=== PATIENT | female | born 1970 | race Caucasian/White ===

== ENCOUNTER 2020-06-29 06:56 | Day surgery (SDC) | payer OTHER ==
[2020-06-29] MEDS ORDERED: KEFZOL 1 GM/50 ML PREMIX** 1 GM/50 ML IVPB IV SCH (07:15)
[2020-06-29 07:30] VITALS: O2SAT 97
[2020-06-29] MEDS ORDERED: Lactated Ringers 1,000 ML IV SCH (07:30)
[2020-06-29] MEDS ORDERED: SUBLIMAZE 100 MCG/2 ML ONE (08:48)
[2020-06-29] MEDS ORDERED: DIPRIVAN 200 MG/20 ML IV ONE (08:48)
[2020-06-29] MEDS ORDERED: Versed 2 MG/2 ML Injection ONE (08:49)
[2020-06-29] MEDS ORDERED: Zofran 4 MG/2 ML VIAL ONE (08:55)
[2020-06-29] MEDS ORDERED: Decadron 4 MG INJ ONE (08:55)
[2020-06-29 11:12] VITALS: BP 111/53; PULSE 52
--- NOTE | 2020-06-30 07:47 | OP ---
SURGERY DATE/TIME: 06/29/2020 0848 PREOPERATIVE DIAGNOSIS: Dysfunctional uterine bleeding and fibroids. POSTOPERATIVE DIAGNOSIS: Dysfunctional uterine bleeding and fibroids. PROCEDURE: Hysteroscopy, D&C. SURGEON: Ruben Maradiaga D.O. SURVEY CAD TECHNICIAN: electronic equipment maint tech. ANESTHESIA: General. ESTIMATED BLOOD LOSS: Minimal. COMPLICATIONS: None. INDICATIONS: The risks, benefits, indications and alternatives of the procedure were reviewed with the patient prior to the procedure. The patient understood the risk of infection, bleeding, bowel injury, bladder injury, ureteral injury, uterine perforation, pelvic infection, thromboembolic disorder associated with the surgery and desires to have this surgery as a possible need to alleviate her current medical condition. DESCRIPTION OF PROCEDURE AND FINDINGS: At this point the patient is taken to the operating room, given general sedation, placed in dorsal lithotomy position. Prepped and draped in the usual sterile fashion. A weighted speculum is then placed in the patient's vagina and the anterior lip of the cervix grasped with a single tooth tenaculum. Endocervical dilators were advanced to the endocervical canal as a means to dilate the cervix and the 5 mm hysteroscope was then placed into the endocervical canal where the endometrial cavity appeared to be within normal limits with no gross abnormalities located within the lining of the uterus. From this point the hysteroscope was then removed and the curette was then introduced in through the endocervical canal where curettage was performed in all quadrants of the uterus retrieving a mild to moderate amount of tissue. From this point hemostasis was obtained. At this point all instruments were then removed from the patient's vaginal region. The patient was then taken out of dorsal lithotomy position, was taken out of anesthesia and was then taken to the recovery room in stable condition. All instruments and laps were accounted for x2.
== END 2020-06-29 11:13 | disposition home or self-care (01) ==
LOC: SDC 06:56
PROVIDERS: ATTEND Obstetrics & Gynecology
DX: N93.9 Abnormal uterine and vaginal bleeding, unspecified (principal); D25.9 Leiomyoma of uterus, unspecified
CPT/HCPCS: 84703; J0690; J1100; J2250; J2405; J2704; J3010

== ENCOUNTER 2020-09-07 07:59 | Inpatient (IN) | payer OTHER ==
[~2020-09-07 07:59] MED LIST: Lactated Ringers 1,000 ML IV ONE
[2020-09-07] MEDS ORDERED: KEFZOL 1 GM/50 ML PREMIX** 1 GM/50 ML IVPB IV ONE (08:09)
[2020-09-07] MEDS: Lactated Ringers 1,000 ML IV SCH ×2 (08:12→23:46)
[2020-09-07] MEDS ORDERED: KEFZOL 1 GM/50 ML PREMIX** 1 GM/50 ML IVPB IV SCH (08:15)
[2020-09-07 08:53] LABS: Absolute Neutrophil Ct (ANC) 4.45 (1.4-6.9); BASOPHIL % 0.4 % (0.0-0.4); Basophil (Absolute #) 0.03 (0-0.4); Eosinophil % 3.1 % (0.00-5.0); Eosinophil (Absolute #) 0.24 (0-0.5); Hemoglobin 12.8 gm/dl (12.0-16.0); Lymphocyte (Absolute #) 2.45 (1.0-4.6); Lymphocytes % 31.4 % (24.0-44.0); Mean Cell Volume 95.7 fl (78-100); Mean Corpuscular Hemoglobin 32.2 pg (26-32); Mean Corpuscular Hgb Concent. 33.7 g/dl (32-36); Mean Platelet Volume 10.4 fl (7.5-11.0); Monocyte (Absolute #) 0.64 (0.0-1.3); Monocytes % 8.2 % (0.0-12.0); Neutrophil % 56.9 % (36.0-66.0); Platelet Count 210 K/mm3 (150-450); Red Blood Count 3.97 M/mm3 (4.1-5.4); Red Cell Distribution Width 13.1 % (11.5-14.0); White Blood Count 7.8 K/mm3 (4.0-10.5)
[2020-09-07] MEDS ORDERED: Versed 2 MG/2 ML Injection IV ONE (08:53)
[2020-09-07 08:56] LABS: ALBUMIN 3.8 g/dL (3.5-5.0); ALKALINE PHOSPHATASE 31 U/L (38-126); ANION GAP 7.5 MEQ/L (5-15); BLOOD UREA NITROGEN 18 mg/dL (7-17); CHLORIDE 108 mmol/L (98-107); Calcium 8.9 mg/dL (8.4-10.2); Carbon Dioxide 24 mmol/L (22-30); Creatinine 1 0.58 mg/dL (0.52-1.04); EST GLOMERULAR FILTRATION RATE > 60.0 ML/MIN; Glucose 90 mg/dL (74-106); Potassium 4.5 mmol/L (3.5-5.1); SGOT/AST 30 U/L (14-36); SGPT/ALT 11 U/L (0-35); SODIUM 135 mmol/L (137-145); Total Protein 6.9 g/dL (6.3-8.2)
[2020-09-07] MEDS ORDERED: Versed 2 MG/2 ML Injection ONE (09:17)
[2020-09-07 09:19] LABS: ABO TYPING A
[2020-09-07] MEDS ORDERED: Astramorph-Pf 5 MG/10 ML ONE (09:19)
[2020-09-07 09:20] LABS: Antibody Screen NEGATIVE (NEGATIVE); RH TYPING POSITIVE
[2020-09-07] MEDS ORDERED: DIPRIVAN 200 MG/20 ML IV ONE (09:29)
[2020-09-07] MEDS ORDERED: SUBLIMAZE 100 MCG/2 ML ONE (09:30)
[2020-09-07] MEDS ORDERED: Zemuron 100 MG/10 ML ONE (09:30)
[2020-09-07] MEDS ORDERED: Decadron 4 MG INJ ONE (09:52)
[2020-09-07] MEDS ORDERED: Naropin 0.5% 30 ML VIAL ONE (10:08)
[2020-09-07] MEDS ORDERED: EPINEPHRINE 1MG/ML AMP ONE (10:08)
[2020-09-07] MEDS ORDERED: Zofran 4 MG/2 ML VIAL ONE (10:39)
[2020-09-07] MEDS ORDERED: BRIDION 200MG/2ML IV ONE (10:57)
[2020-09-07] MEDS ORDERED: Compazine 10 MG/2 ML ONE (11:29)
[2020-09-07] MEDS ORDERED: HOLD NARCOTIC ANALGESICS AND SEDATIVES X24 HR MC PRN (13:23)
[2020-09-07] MEDS ORDERED: DEMEROL 50 MG IV PRN (13:30)
[2020-09-07] MEDS ORDERED: Narcan 0.4 MG/ML IV PRN (13:30)
[2020-09-07] MEDS ORDERED: Nubain 10 MG/ML IV PRN (13:30)
[2020-09-07] MEDS ORDERED: PERCOCET TABLET 5/325MG PO PRN (13:30)
[2020-09-07] MEDS ORDERED: Sodium Chloride 0.9% 10 ML FLUSH Syringe IJ PRN (13:30)
[2020-09-07] MEDS ORDERED: CLARITIN 10 MG PO PRN (13:30)
[2020-09-07] MEDS ORDERED: Zofran 4 MG/2 ML VIAL IV PRN (13:30)
[2020-09-07] MEDS ORDERED: MORPHINE SULFATE 2 MG INJ IV PRN (13:30)
[2020-09-07] MEDS: Mylicon 80MG PO SCH ×2 (13:43→22:45)
[2020-09-07] MEDS: Reglan 10 MG/2 ML IV SCH ×2 (13:44→22:45)
[2020-09-07] MEDS: KEFZOL 1 GM/50 ML PREMIX** 1 GM/50 ML IVPB IV SCH ×2 (13:47→22:47)
[2020-09-07] MEDS: Sodium Chloride 0.9% 10 ML FLUSH Syringe IJ SCH ×2 (13:52→22:46)
[2020-09-07 14:16] LABS: Appearance CLEAR (CLEAR); Bilirubin NEGATIVE (NEGATIVE); Blood SMALL Ery/ul (0-5); Glucose NEGATIVE (NEGATIVE); Ketones NEGATIVE (NEGATIVE); Leukocyte Esterase NEGATIVE (NEGATIVE); Mucus SLIGHT /HPF (NEGATIVE); Nitrite NEGATIVE (NEGATIVE); Protein,Urine Dip NEGATIVE (Negative); Specific Gravity 1.005 (1.005-1.025); Urobilinogen NEGATIVE mg/dL (0-1)
[2020-09-07] MEDS: Zofran 4 MG/2 ML VIAL IV PRN (18:02)
[2020-09-07 18:51] LABS: Hematocrit 37.5 % (35-47); Hemoglobin 12.5 gm/dl (12.0-16.0); Mean Cell Volume 97.2 fl (78-100); Mean Corpuscular Hemoglobin 32.4 pg (26-32); Mean Corpuscular Hgb Concent. 33.3 g/dl (32-36); Mean Platelet Volume 10.4 fl (7.5-11.0); Platelet Count 208 K/mm3 (150-450); Red Blood Count 3.86 M/mm3 (4.1-5.4); Red Cell Distribution Width 13.1 % (11.5-14.0)
[2020-09-07 18:57] LABS: White Blood Count 29.6 K/mm3 (4.0-10.5)
[2020-09-07 21:05] LABS: Total Cells Counted 100
[2020-09-07 21:06] LABS: BAND 4 % (0.0-2.0); Lymphocytes 7 % (24-44); Monocyte 3 % (0.0-12.0); Neutrophils 86 % (36.0-66.0); Platelet Estimate NORMAL (NORMAL)
[2020-09-07] MEDS: Colace 100 MG PO SCH (22:47)
[2020-09-07] MEDS ORDERED: ENOXAPARIN SODIUM SQ SCH (23:00)
[2020-09-08] MEDS: Zofran 4 MG/2 ML VIAL IV PRN (00:12)
[2020-09-08] MEDS: Reglan 10 MG/2 ML IV SCH (05:44)
[2020-09-08] MEDS: Mylicon 80MG PO SCH (05:44)
[2020-09-08] MEDS: Sodium Chloride 0.9% 10 ML FLUSH Syringe IJ SCH (05:45)
[2020-09-08 05:58] LABS: Absolute Neutrophil Ct (ANC) 17.02 (1.4-6.9); Basophil (Absolute #) 0.01 (0-0.4); Eosinophil (Absolute #) 0.01 (0-0.5); Hematocrit 32.8 % (35-47); Hemoglobin 10.9 gm/dl (12.0-16.0); Lymphocyte (Absolute #) 2.32 (1.0-4.6); Mean Cell Volume 97.3 fl (78-100); Mean Corpuscular Hemoglobin 32.3 pg (26-32); Mean Corpuscular Hgb Concent. 33.2 g/dl (32-36); Mean Platelet Volume 10.2 fl (7.5-11.0); Monocyte (Absolute #) 1.78 (0.0-1.3); Monocytes % 8.4 % (0.0-12.0); Neutrophil % 80.6 % (36.0-66.0); Platelet Count 187 K/mm3 (150-450); Red Blood Count 3.37 M/mm3 (4.1-5.4); Red Cell Distribution Width 13.2 % (11.5-14.0); White Blood Count 21.1 K/mm3 (4.0-10.5)
[2020-09-08 06:20] LABS: ALBUMIN 2.7 g/dL (3.5-5.0); ALKALINE PHOSPHATASE 28 U/L (38-126); BLOOD UREA NITROGEN 11 mg/dL (7-17); CHLORIDE 106 mmol/L (98-107); Calcium 8.5 mg/dL (8.4-10.2); Carbon Dioxide 28 mmol/L (22-30); Creatinine 1 0.57 mg/dL (0.52-1.04); EST GLOMERULAR FILTRATION RATE > 60.0 ML/MIN; Glucose 99 mg/dL (74-106); Potassium 3.9 mmol/L (3.5-5.1); SGOT/AST 20 U/L (14-36); SGPT/ALT 9 U/L (0-35); SODIUM 134 mmol/L (137-145); Total Protein 5.3 g/dL (6.3-8.2)
[2020-09-08] MEDS: Lactated Ringers 1,000 ML IV SCH (07:34)
[2020-09-08] MEDS ORDERED: Zofran 4 MG/2 ML VIAL IV PRN (08:15)
[2020-09-08] MEDS: Colace 100 MG PO SCH (09:31)
--- NOTE | 2020-09-08 09:32 | OP ---
SURGERY DATE/TIME: 09/07/2020916 PREOPERATIVE DIAGNOSIS: Simple hyperplasia. POSTOPERATIVE DIAGNOSIS: Simple hyperplasia. PROCEDURES: 1) Total abdominal hysterectomy. 2) Bilateral salpingectomy. SURGEON: Ruben Maradiaga D.O. LIEUTENANT FIRE FIGHTER: Marvin Jj surgical elastic knitter. ANESTHESIA: General. ESTIMATED BLOOD LOSS: Minimal. COMPLICATIONS: None. INDICATIONS: The risks, benefits, indications and alternatives of the procedure were reviewed with the patient prior to the procedure. The patient understood the risk of infection, bleeding, bowel injury, bladder injury, ureteral injury, pelvic infection and thromboembolic disorder associated with the surgery however desires to have the surgery as a possible need to alleviate her current medical condition. DESCRIPTION OF PROCEDURE AND FINDINGS: At this point the patient is taken to the operating room, where she was placed in supine position, given general sedation, prepared and draped in the usual sterile fashion. A Pfannenstiel incision was made approximately 2 cm above the symphysis pubis and extended sharply through the rectus fascia. The fascia was then incised bilaterally with curved Mckinney scissors and the muscle of the anterior abdominal wall were in the midline by sharp and blunt dissection. The peritoneum was then grasped between two pickups elevated and entered sharply with Metzenbaum scissors. The pelvis is then examined and noted to have approximately 10 week size uterus. An O'Dandre-O'Granados retractor was placed into the incision and the bowel packed away with moist laparotomy sponges. Two Rose Mary clamps were placed on the cornua and used for retraction. At this point the LigaSure was used over the left utero-ovarian ligament where it was clamped, coagulated and cut taking down through the round ligament towards the uterine vasculature. From this point the anterior lip of the broad ligament was then incised along the bladder reflection towards the midline on each side. From this point uterine arteries were skeletonized on each side, clamped with Vinayak clamp, transected and suture ligated with 0 Vicryl suture. Hemostasis was assured. The same procedure was performed on the right side where the LigaSure was used to clamp, coagulate and cut the utero-ovarian ligament on its side taking down to the round ligament towards the uterine vasculature where again on its side uterine arteries were skeletonized, clamped with Vinayak clamps, transected and suture ligated with 0 Vicryl suture. The LigaSure was used to excise the fallopian tube on the mesosalpinx on both sides and was done so without complications. Hemostasis was obtained. From this point the uterosacral ligaments were clamped on both sides, transected and suture ligated in similar fashion. The cervix and the uterus were then amputated with cautery. The vaginal cuff angles were closed with a figure-of-8 stitch of 0 Vicryl on both sides and transected the ipsilateral Cardinal and uterosacral ligaments. The remainder of the vaginal cuff was closed with interrupted 0 Vicryl figure-of-8 sutures. Hemostasis was assured. The pelvis was then irrigated copiously at this time. All lap, sponge and instruments were then removed from the patient's abdomen. Hemostasis assured. Muscles were closed with 2-0 chromic suture, fascia closed with 0 Vicryl suture and the subcutaneous layer was closed with 3-0 plain suture and the skin was closed with absorbable yanira called INSORB. Sponge, lap and instruments counts were correct x2. The patient was then taken to the recovery room in stable condition.
[2020-09-08] MEDS ORDERED: NON-FORMULARY ITEM (Meloxicam [Mobic] 15 MG) PO SCH (10:00)
[2020-09-08] MEDS ORDERED: MELOXICAM PO SCH (10:00)
[2020-09-08 10:29] LABS: Slide Review 1 YES
[2020-09-08] MEDS ORDERED: TORAdol 30 mg Injection IV PRN (13:29)
[2020-09-08 15:56] VITALS: BP 147/81; PULSE 66; O2SAT 98
--- NOTE | 2020-09-08 16:16 | PCM.DS ---
Discharge Summary Date of Admission: 09/07/20 07:59 Admitting Physician: SINA WEI DO Primary Care Provider: PHILIPPE EDGE Allergies Allergies No Known Drug Allergies Allergy (Verified 09/07/20 08:16) Hospital Summary - Hospital Course Hospital Course: pt admitted on sep 07 for undergoing total abdominal hysterectomy for simple hyperplasia and underwent procedure without complication. during postop peirod did well and now stable for discharge. pt given norco for pain management and was given rx for clindamycin 300mg bid 5 days prophylaxis. pt advised to fu in office in 2 wks for postop evaluation. all questions answered to her satisfaction. - Vitals & Intake/Output Vital Signs: Vital Signs Temperature 98.5 F 09/08/20 15:55 Pulse Rate 66 09/08/20 15:55 Respiratory Rate 18 09/08/20 15:55 Blood Pressure 147/81 09/08/20 15:55 O2 Sat by Pulse Oximetry 98 09/08/20 15:55 Intake & Output: Intake & Output 09/06/20 09/07/20 09/08/20 09/09/20 11:59 11:59 11:59 11:59 Intake Total 0 Output Total 1600 Balance -1600 Weight 56 kg 56 kg - Lab Result Diagrams: 09/08/20 04:40 09/08/20 04:40 Lab Results-Last 24 Hrs: Lab Results-Last 24 Hours 09/07/20 09/08/20 09/08/20 Range/Units 18:00 04:40 04:40 WBC 29.6 H* 21.1 H (4.0-10.5) K/mm3 RBC 3.86 L 3.37 L (4.1-5.4) M/mm3 Hgb 12.5 10.9 L (12.0-16.0) gm/dl Hct 37.5 32.8 L (35-47) % MCV 97.2 97.3 (78-100) fl MCH 32.4 H 32.3 H (26-32) pg MCHC 33.3 33.2 (32-36) g/dl RDW 13.1 13.2 (11.5-14.0) % Plt Count 208 187 (150-450) K/mm3 MPV 10.4 10.2 (7.5-11.0) fl Gran % 80.6 H (36.0-66.0) % Eos # (Auto) 0.01 (0-0.5) Absolute Lymphs (auto) 2.32 (1.0-4.6) Absolute Monos (auto) 1.78 H (0.0-1.3) Lymphocytes % 11.0 L (24.0-44.0) % Monocytes % 8.4 (0.0-12.0) % Eosinophils % 0.0 (0.00-5.0) % Basophils % 0.0 (0.0-0.4) % Absolute Granulocytes 17.02 H (1.4-6.9) Segmented Neutrophils 86 H (36.0-66.0) % Band Neutrophils 4 H (0.0-2.0) % Lymphocytes (Manual) 7 L (24-44) % Monocytes (Manual) 3 (0.0-12.0) % Basophils # 0.01 (0-0.4) Platelet Estimate NORMAL (NORMAL) RBC Morphology NORMAL Smear Path Review Pending Sodium 134 L (137-145) mmol/L Potassium 3.9 (3.5-5.1) mmol/L Chloride 106 (98-107) mmol/L Carbon Dioxide 28 (22-30) mmol/L Anion Gap 4.0 L (5-15) MEQ/L BUN 11 (7-17) mg/dL Creatinine 0.57 (0.52-1.04) mg/dL Estimated GFR > 60.0 ML/MIN Glucose 99 (74-106) mg/dL Calcium 8.5 (8.4-10.2) mg/dL Total Bilirubin 0.50 (0.2-1.3) mg/dL AST 20 (14-36) U/L ALT 9 (0-35) U/L Alkaline Phosphatase 28 L (38-126) U/L Serum Total Protein 5.3 L (6.3-8.2) g/dL Albumin 2.7 L (3.5-5.0) g/dL Slides for Path Review YES Micro Results-Entire Visit: Microbiology 09/07/20 09:38 Urine Culture - Preliminary Catherized NO GROWTH TO DATE - Procedures and Test Procedures and Tests throughout Hospitalization: Therapy Orders & Screens 09/07/20 12:34 Incentive Spirometry UD Comment: Diagnosis: LAP TOTAL HYSTERECTOMY HIRO SALPINGECTOMY Discharge Exam Gastrointestinal/Abdomen Exam: soft Final Diagnosis/Problem List - Final Discharge Diagnosis/Problem (1) Status post hysterectomy Current Visit: Yes Status: Acute Code(s): Z90.710 - ACQUIRED ABSENCE OF BOTH CERVIX AND UTERUS - Discharge Discharge Date: 09/08/20 Disposition: Home, Self-Care Condition: Stable Prescriptions: New Clindamycin HCl 300 mg PO BID #10 capsule Hydrocodone/APAP 5-325 Tab^^^ [Mobile 5-325 Tablet^^^] 1 tab PO Q6HPRN PRN #26 tablet MDD 6 PRN Reason: Pain Continue Meloxicam [Mobic] 15 mg PO DAILY Instructions: Hysterectomy (DC) Follow up with: SINA WEI DO [ACTIVE STAFF] - (should fu in 2 wks for postop check)
[2020-09-09 09:57] LABS: Pathologist Review YES
== END 2020-09-08 16:41 | disposition home or self-care (01) | DRG 743 ==
LOC: MED SURG 07:59 → EDSTATUS 19:25
PROVIDERS: ADMIT Obstetrics & Gynecology; ATTEND Obstetrics & Gynecology
PROC: 0UT90ZZ Resection of Uterus, Open Approach (ICD-10-PCS; principal; 2020-09-07)
PROC: 0UT70ZZ Resection of Bilateral Fallopian Tubes, Open Approach (ICD-10-PCS; 2020-09-07)
DX: N85.01 Benign endometrial hyperplasia (principal)
CPT/HCPCS: 36415; 62322; 64488; 76937; 76942; 80053; 81001; 84703; 85007; 85025; 85027; 86850; 86900; 86901; 87086; 88309; J0171; J0690; J1100; J1650; J2250; J2274; J2405; J2704; J2795; J3010; A9270-GY